=== PATIENT | female | born 1960 | race Caucasian/White ===

== ENCOUNTER 2017-03-14 13:35 | Emergency (ER) | payer MEDICARE ==
[2017-03-14 13:42] VITALS: RESP 18
[2017-03-14] MEDS ORDERED: Bacitracin 500 Units/gm Oint Foilpak UD TOP ONE (13:52)
--- NOTE | 2017-03-14 13:53 | C.PDOC ---
History Of Present Illness 56 yr old female presents to the ER stating yesterday while cleaning she splashed bleach onto her arms. States afterwards started to develop a itchy rash to bilateral arms. Denies fever, chest pain, SOB, nausea, vomiting, weakness or numbness. Time Seen by Provider: 03/14/17 13:46 Chief Complaint (Nursing): Abnormal Skin Integrity History Per: Patient History/Exam Limitations: no limitations Onset/Duration Of Symptoms: Days (1) Past Medical History Reviewed: Historical Data, Nursing Documentation, Vital Signs Vital Signs: Last Vital Signs Temp 98.4 F 03/14/17 14:42 Pulse 106 H 03/14/17 14:42 Resp 18 03/14/17 14:42 BP 114/62 03/14/17 14:42 Pulse Ox 99 03/14/17 14:42 - Medical History PMH: Diabetes Family History: States: No Known Family Hx - Social History Hx Tobacco Use: No Hx Alcohol Use: No Hx Substance Use: No - Immunization History Hx Tetanus Toxoid Vaccination: No Hx Influenza Vaccination: Yes Hx Pneumococcal Vaccination: No Review Of Systems Except As Marked, All Systems Reviewed And Found Negative. Constitutional: Negative for: Fever Cardiovascular: Negative for: Chest Pain Respiratory: Negative for: Shortness of Breath Gastrointestinal: Negative for: Nausea, Vomiting Skin: Positive for: Rash (Itchy rash to bilateral arms) Neurological: Negative for: Weakness, Numbness Physical Exam - Physical Exam Appears: Non-toxic, No Acute Distress Skin: Warm, Dry, Other ((+) Urticaria and erythema to the bilateral forearms. Hands are normal.) Head: Atraumatic, Normacephalic Eye(s): bilateral: Normal Inspection, PERRL, EOMI Oral Mucosa: Moist Tongue: Normal Appearing, No Swelling Lips: Normal Appearing, No Swelling Throat: No Erythema, No Exudate Neck: Normal ROM, Supple Chest: Symmetrical, No Tenderness Cardiovascular: Rhythm Regular, No Friction Rub, No Murmur Respiratory: Normal Breath Sounds, No Rales, No Rhonchi, No Stridor, No Wheezing Gastrointestinal/Abdominal: Soft, No Tenderness Extremity: Normal ROM, Capillary Refill (<2 secs), No Swelling Neurological/Psych: Oriented x3, Normal Speech, Normal Motor Gait: Steady ED Course And Treatment O2 Sat by Pulse Oximetry: 96 (RA) Pulse Ox Interpretation: Normal Medical Decision Making Medical Decision Making: PLAN: * Bacitracin TOP * Benadryl PO * Prednisone PO Disposition - Disposition Referrals: [facility] [Outside] Disposition: HOME/ ROUTINE Disposition Time: 13:52 Condition: GOOD Additional Instructions: Follow up with the medical doctor within 1-2 days. Return if worsened Prescriptions: DiphenhydrAMINE [Benadryl] 25 mg PO QID #28 cap Hydrocortisone 1% Oint [Cortizone 1% Oint] 1 appl TP BID #2 tube predniSONE [Prednisone] 10 mg PO BID #10 tab Instructions: Contact Dermatitis (ED) Forms: [employer] (Malay) Print Language: BARBADIAN - Clinical Impression Clinical Impression: Contact dermatitis - PA / [employer] / Resident Statement MD/DO has reviewed & agrees with the documentation as recorded. - Scribe Statement The provider has reviewed the documentation as recorded by the Scribe Jackie Johnson All medical record entries made by the Scribe were at my direction and personally dictated by me. I have reviewed the chart and agree that the record accurately reflects my personal performance of the history, physical exam, medical decision making, and the department course for this patient. I have also personally directed, reviewed, and agree with the discharge instructions and disposition.
[2017-03-14] MEDS ORDERED: Bacitracin 500 Units/gm Oint Foilpak UD ONE (14:03)
[2017-03-14 14:43] VITALS: BP 114/62; PULSE 106; TEMP 98.4
[2017-03-14 15:12] VITALS: O2SAT 96
== END 2017-03-14 14:44 | disposition home or self-care (01) ==
LOC: C.ER 13:35
DX: L25.3 Unspecified contact dermatitis due to other chemical products (principal)

== ENCOUNTER 2017-03-21 13:38 | Emergency (ER) | payer MEDICARE ==
[2017-03-21 13:55] VITALS: TEMP 98.2
[2017-03-21] MEDS ORDERED: DiphenhydrAMINE 50 mg/ml Inj IM STA (14:12)
[2017-03-21] MEDS ORDERED: DiphenhydrAMINE 50 mg/ml Inj ONE (14:28)
--- NOTE | 2017-03-21 14:46 | C.PDOC ---
History Of Present Illness 56 y/o F p/w diffuse rash x 1 week. Patient was treated once a week ago with steroids, benadryl, still with persistent itchy rash. Denies throat swelling or dyspnea or drooling. Patient states a cleaning chemical splashed on her arm prior to symptoms but denies any new detergents, soaps, clothes, sheets, etc. Time Seen by Provider: 03/21/17 14:05 Chief Complaint (Nursing): Allergic Reaction Past Medical History Vital Signs: Last Vital Signs Temp 98.2 F 03/21/17 13:52 Pulse 100 H 03/21/17 13:52 Resp 17 03/21/17 13:52 BP 139/99 H 03/21/17 13:52 Pulse Ox 99 03/21/17 14:48 - Medical History PMH: Diabetes Denies: Chronic Kidney Disease Family History: States: Unknown Family Hx - Social History Hx Tobacco Use: No Hx Alcohol Use: No Hx Substance Use: No - Immunization History Hx Tetanus Toxoid Vaccination: No Hx Influenza Vaccination: Yes Hx Pneumococcal Vaccination: No Review Of Systems Except As Marked, All Systems Reviewed And Found Negative. Constitutional: Negative for: Fever Respiratory: Negative for: Shortness of Breath Physical Exam - Physical Exam Additional Physical Exam Comments: Constitutional: No acute distress. Head: Normocephalic. Atraumatic. Eyes: PERRL. ENT: Moist mucous membranes. Neck: Supple. Cardiovascular: Regular rate. Radial pulse 2+ bilaterally. Chest: No tenderness. Respiratory: Airway patent. No stridor. No tongue swelling. No wheezing. GI: Soft. Nontender. Nondistended. Back: No CVA tenderness. Musculoskeletal: No tenderness or swelling of extremities. Skin: Arms and legs with scattered urticaria, blanching, erythematous, nontender. Neurologic: Alert, no focal deficit. ED Course And Treatment O2 Sat by Pulse Oximetry: 99 Medical Decision Making Medical Decision Making: Continue Benadryl, add Pepcid, discontinue steroids, f/u PMD/Allergy, instructed to return to ED immediately for any difficultly breathing or oral swelling. Disposition - Disposition Disposition: HOME/ ROUTINE Disposition Time: 14:46 Condition: STABLE Prescriptions: DiphenhydrAMINE [Benadryl] 2 cap PO Q8 #25 cap Famotidine [Pepcid] 1 tab PO BID #14 tab Instructions: General Allergic Reaction (ED) Forms: [employer] (Dutch) - Clinical Impression Clinical Impression: Urticaria - Scribe Statement The provider has reviewed the documentation as recorded by the Scribe (Kristina Javed) Provider Attestation: All medical record entries made by the Scribe were at my direction and personally dictated by me. I have reviewed the chart and agree that the record accurately reflects my personal performance of the history, physical exam, medical decision making, and the department course for this patient. I have also personally directed, reviewed, and agree with the discharge instructions and disposition.
[2017-03-21 14:55] VITALS: BP 149/81; PULSE 80; RESP 18; O2SAT 100
== END 2017-03-21 15:05 | disposition home or self-care (01) ==
LOC: C.ER 13:38
DX: L50.9 Urticaria, unspecified (principal); E11.9 Type 2 diabetes mellitus without complications
CPT/HCPCS: 96372; 99284; J1200

== ENCOUNTER 2017-03-25 11:26 | Emergency (ER) | payer MEDICARE ==
[2017-03-25 11:40] VITALS: RESP 18
[2017-03-25] MEDS ORDERED: Sodium Chloride 0.9% 1,000 ML IV ONE ×2 (12:34→14:23)
[2017-03-25 13:02] LABS: BASO # 0.1 K/uL (0.0-0.2); BASO % 1.1 % (0.0-2.0); EOS # 0.2 K/uL (0.0-0.7); EOS % 2.6 % (0.0-4.0); HEMATOCRIT 42.6 % (34.0-47.0); LYMPH # 1.9 K/uL (1.0-4.3); LYMPH % 26.5 % (20.0-40.0); MEAN CELL VOLUME 71.8 fL (81.0-99.0); MEAN CORPUSCULAR HEMOGLOBIN 22.4 pg (27.0-31.0); MEAN CORPUSCULAR HGB CONC 31.2 g/dL (33.0-37.0); MEAN PLATELET VOLUME 8.2 fL (7.2-11.7); MONO # 0.6 K/uL (0.0-0.8); MONO % 8.8 % (0.0-10.0); NRBC % 0.2 % (0.0-2.0); RED CELL DISTRIBUTION WIDTH 15.5 % (11.5-14.5); WHITE BLOOD COUNT 7.3 K/uL (4.8-10.8)
--- NOTE | 2017-03-25 13:44 | C.PDOC ---
History Of Present Illness 56 y/o female with PMHx of DM presents to ED for elevated blood sugar and itching feeling diffusely through body fro 2 days. Patient also complaints of occasional mild throat pain possibly consistent with itchiness as per patient. Patient states her sugar level are normally 125-150 and today was over 500. Patient is compliant wit medication and denies fever, chills, nausea, vomiting, weakness, lightheadedness or any other complaints at this time. Time Seen by Provider: 03/25/17 12:28 Chief Complaint (Nursing): High Blood Sugar History Per: Patient History/Exam Limitations: no limitations Onset/Duration Of Symptoms: Days Current Symptoms Are (Timing): Still Present Current Diabetic Medications: Insulin, Oral Medication Past Medical History Reviewed: Historical Data, Nursing Documentation, Vital Signs Vital Signs: Last Vital Signs Temp 98.4 F 03/25/17 16:40 Pulse 98 H 03/25/17 16:40 Resp 18 03/25/17 16:40 BP 158/98 H 03/25/17 16:40 Pulse Ox 98 03/25/17 17:22 - Medical History PMH: Arthritis, Diabetes Surgical History: No Surg Hx Family History: States: No Known Family Hx - Social History Hx Tobacco Use: No Hx Alcohol Use: No Hx Substance Use: No - Immunization History Hx Tetanus Toxoid Vaccination: No Hx Influenza Vaccination: No Hx Pneumococcal Vaccination: No Review Of Systems Constitutional: Negative for: Fever, Chills Cardiovascular: Negative for: Chest Pain Respiratory: Negative for: Shortness of Breath Gastrointestinal: Negative for: Nausea, Vomiting Skin: Negative for: Rash Neurological: Negative for: Weakness, Numbness, Dizziness Physical Exam - Physical Exam Additional Physical Exam Comments: Constitutional: No acute distress. WDWN. Head: Normocephalic. Atraumatic. Eyes: PERRL. EOMI. ENT: Moist mucous membranes. Neck: Supple. Cardiovascular: Regular rate and rhythm. Chest: No tenderness. Respiratory: Clear to auscultation bilaterally. GI: Soft. Nontender. Nondistended. Normoactive bowel sounds. No rebound. No guarding. Back: No CVA and no mid-line tenderness. Musculoskeletal: No tenderness or swelling of extremities. Skin: No rash. Neurologic: Alert, no focal deficit. ED Course And Treatment - Laboratory Results Result Diagrams: 03/25/17 12:57 03/25/17 12:57 O2 Sat by Pulse Oximetry: 98 (RA) Pulse Ox Interpretation: Normal Medical Decision Making Medical Decision Making: pt reports she took insulin at home at 8 am, didn't receive any insulin today in ed since fingerstick was 272 after first liter fluids decreased to 175afer second liter. f/u pmd. Disposition Counseled Patient/Family Regarding: Studies Performed, Diagnosis, Need For Followup - Disposition Disposition: HOME/ ROUTINE Disposition Time: 17:20 Condition: STABLE Additional Instructions: COntinue to take your medications as insulin as prescribed. Pay attention to blood sugars. Follow diabetic diet. Follow up with your doctor in 1-2 days. Instructions: Diabetic Hyperglycemia (ED) Forms: Gen Discharge Inst [place]ese, [employer] ([place]ese) Print Language: ENGLISH - Clinical Impression Clinical Impression: Hyperglycemia - PA / [employer] / Resident Statement MD/DO has reviewed & agrees with the documentation as recorded. - Scribe Statement The provider has reviewed the documentation as recorded by the Biankaibheydi Hoffman All medical record entries made by the Biankaibheydi were at my direction and personally dictated by me. I have reviewed the chart and agree that the record accurately reflects my personal performance of the history, physical exam, medical decision making, and the department course for this patient. I have also personally directed, reviewed, and agree with the discharge instructions and disposition.
[2017-03-25 13:46] LABS: BLOOD UREA NITROGEN 22 mg/dL (7-17)
[2017-03-25 13:47] LABS: ALB/GLOB RATIO 0.8 (1.0-2.1); BILIRUBIN,TOTAL 0.6 mg/dL (0.2-1.3); CALCIUM 8.3 mg/dl (8.6-10.4); CARBON DIOXIDE 25 mmol/L (22-30); CHLORIDE 93 mmol/L (98-107); GFR AFRICAN-AMERICAN > 60; POTASSIUM 5.1 mmol/L (3.6-5.2); SODIUM 125 mmol/L (132-148); TOTAL PROTEIN 7.7 g/dL (6.3-8.3)
[2017-03-25 13:48] LABS: ALKALINE PHOSPHATASE 95 U/L (38-126); ALT/SGPT 23 U/L (9-52); AST/SGOT 71 U/L (14-36)
[2017-03-25 14:06] LABS: GLUCOSE,RANDOM 572 mg/dL (65-105)
[2017-03-25] MEDS ORDERED: (Novolin R) Insulin Human Regular 100 units/ml vial SC ONE (14:22)
[2017-03-25 14:27] LABS: RBC URINE 8 /hpf (0-3); URINE BACTERIA RARE (<OCC); URINE BILIRUBIN NEGATIVE (NEGATIVE); URINE BLOOD 1+ (NEGATIVE); URINE COLOR Yellow (YELLOW); URINE GLUCOSE (UA) 3+ mg/dL (Normal); URINE KETONE TRACE mg/dL (NEGATIVE); URINE LEUKOCYTE ESTERASE NEG Leu/uL (Negative); URINE PROTEIN 2+ mg/dL (NEGATIVE); URINE UROBILINOGEN NORMAL mg/dL (0.2-1.0); WBC URINE 4 /hpf (0-5)
[2017-03-25] MEDS ORDERED: Sodium Chloride 0.9% 1,000 ML ONE (14:30)
[2017-03-25] MEDS ORDERED: (Novolin R) Insulin Human Regular 100 units/ml vial ONE (14:30)
[2017-03-25 15:38] LABS: DRAW SITE VB; VENOUS BLOOD GAS BASE EXCESS -3.6 mmol/L (0.0-2.0); VENOUS BLOOD GAS PCO2 47 mmHg (40-60)
[2017-03-25 16:41] VITALS: BP 158/98; PULSE 98; TEMP 98.4
[2017-03-25 17:21] VITALS: O2SAT 98
== END 2017-03-25 17:30 | disposition home or self-care (01) ==
LOC: C.ER 11:26
DX: E11.65 Type 2 diabetes mellitus with hyperglycemia (principal); Z79.4 Long term (current) use of insulin; Z79.84 Long term (current) use of oral hypoglycemic drugs
CPT/HCPCS: 80053; 81001; 82009; 82803; 82948; 84703; 85025; 96360; 96361; 99285; J7040